=== PATIENT | female | born 2000 | race Caucasian/White ===

== ENCOUNTER 2019-08-22 21:15 | Emergency (ER) | payer OTHER ==
[2019-08-23 00:12] LABS: ABSOLUTE BASOPHILS # (AUTO) 0.1 10^3/uL (0.0-0.2); ABSOLUTE EOSINOPHILS # (AUTO) 0.1 10^3/uL (0.0-0.6); ABSOLUTE LYMPHOCYTES (AUTO) 4.5 10^3/uL (0.5-4.7); ABSOLUTE MONOCYTES (AUTO) 0.6 10^3/uL (0.1-1.4); ABSOLUTE NEUT (AUTO) 9.9 10^3/uL (1.7-8.2); BASOPHILS % (AUTO) 0.7 % (0-2); EOSINOPHILS % (AUTO) 0.8 % (0-6); HEMATOCRIT 42.8 % (36.0-47.0); HEMOGLOBIN 14.8 g/dL (12.0-15.5); LYMPHOCYTES % (AUTO) 29.6 % (13-45); MEAN CORPUSCULAR HEMOGLOBIN 31.1 pg (27.0-33.4); MEAN CORPUSCULAR HGB CONC 34.6 g/dL (32.0-36.0); MEAN CORPUSCULAR VOLUME 90 fl (80-97); MONOCYTES % (AUTO) 4.2 % (3-13); PLATELET COUNT 265 10^3/uL (150-450); RED BLOOD COUNT 4.77 10^6/uL (3.72-5.28); RED CELL DISTRIBUTION WIDTH 12.4 % (11.5-14.0); SEGMENTED NEUTROPHILS % (AUTO) 64.7 % (42-78); TOTAL CELLS COUNTED % (AUTO) 100 %; WHITE BLOOD COUNT 15.3 10^3/uL (4.0-10.5)
[2019-08-23 00:29] LABS: ALBUMIN 4.6 g/dL (3.5-5.0); ALKALINE PHOSPHATASE 56 U/L (38-126); ANION GAP 11 (5-19); ASPARTATE AMINO TRANSFERASE 19 U/L (14-36); BILIRUBIN,DIRECT 0.1 mg/dL (0.0-0.4); BILIRUBIN,TOTAL 0.3 mg/dL (0.2-1.3); BLOOD UREA NITROGEN 9 mg/dL (7-20); CALCIUM 9.3 mg/dL (8.4-10.2); CARBON DIOXIDE 24 mmol/L (22-30); CHLORIDE 103 mmol/L (98-107); GLUCOSE 81 mg/dL (75-110)
[2019-08-23 00:32] LABS: APPEARANCE,URINE CLEAR; BILIRUBIN,URINE NEGATIVE (NEGATIVE); COLOR,URINE STRAW; GLUCOSE, URINE NEGATIVE (NEGATIVE); KETONES,URINE NEGATIVE (NEGATIVE); LEUKOCYTE ESTERASE,URINE NEGATIVE (NEGATIVE); NITRITE,URINE NEGATIVE (NEGATIVE); PROTEIN,URINE NEGATIVE (NEGATIVE); URINE SPECIFIC GRAVITY 1.008; UROBILINOGEN,URINE NEGATIVE mg/dL (<2.0)
--- NOTE | 2019-08-23 01:19 | ER Document Report ---
ED General - General Chief Complaint: Abdominal Pain Stated Complaint: ABDOMINAL PAIN/VAGINAL BLEEDING Time Seen by Provider: 08/22/19 23:33 Notes: 19-year-old female who is a G1, P0 presents the emergency department complaining of brown vaginal discharge starting earlier this evening as well as sharp stabbing abdominal pains that start in her low abdomen and radiate to her mid back. These have been going on since 17:30-2 22:30. Patient had a positive test at [facility] earlier this month, states her last menstrual period was 07/11/2019. Did have intercourse a few days ago. Has not yet had an ultrasound. - Related Data Allergies/Adverse Reactions: No Known Allergies Allergy (Unverified 08/22/19 21:47) Past Medical History - General Information source: Patient - Social History Smoking Status: Former Smoker Chew tobacco use (# tins/day): No Frequency of alcohol use: None Drug Abuse: None Family History: Reviewed & Not Pertinent Patient has suicidal ideation: No Patient has homicidal ideation: No Review of Systems - Review of Systems Constitutional: No symptoms reported Genitourinary: See HPI, Discharge. denies: Burning, Dysuria Female Genitourinary: See HPI, , Vaginal bleeding Musculoskeletal: See HPI, Back pain -: Yes All other systems reviewed and negative Physical Exam - Vital signs Vitals: Temp Pulse Resp BP Pulse Ox 97.7 F 70 18 121/76 99 08/22/19 21:45 08/22/19 21:45 08/22/19 21:45 08/22/19 21:45 08/22/19 21:45 Interpretation: Normal - Notes Notes: GENERAL: Alert, interacts well. No acute distress. HEAD: Normocephalic, atraumatic EYES: Pupils equal, round and reactive to light, extraocular movements intact. ENT: Oral mucosa moist, tongue midline. NECK: Full range of motion, supple, trachea midline. LUNGS: Clear to auscultation bilaterally, no wheezes, rales or rhonchi, no respiratory distress. HEART: Regular rate and rhythm, no murmurs, gallops, rubs. ABDOMEN: Soft, mild suprapubic tenderness palpation, nondistended, bowel sounds present in all 4 quadrants. EXTREMITIES: Moves all 4 extremities spontaneously, no edema, radial and dorsalis pedis pulses 2/4 bilaterally. No cyanosis. NEUROLOGICAL: Alert and oriented x3, normal speech. PSYCH: Normal mood, normal affect. SKIN: Warm, Dry, normal turgor, no rashes or lesions noted. Course - Re-evaluation Re-evalutation: 08/23/19 01:19 CBC shows leukocytosis of 15.3 otherwise unremarkable, CMP unremarkable, lipase normal, urinalysis shows small blood, no leukocyte esterase, test is pending as is RhoGam and quantitative hCG. Transvaginal ultrasound has been ordered to look for ectopic or evidence of intrauterine . 08/23/19 03:24 CBC shows leukocytosis of 15.3, no evidence of infection anywhere, quant is 41,364, urinalysis shows small blood but no signs of infection, patient is a positive, RhoGam is not indicated, transvaginal ultrasound does not show any subchorionic hemorrhage, it does show di-di-twins at 5 weeks and 5 days with heart rates of 158 bpm respectively. Bleeding likely came from having had sex 2 to 3 days ago from some cervical trauma due to the increased friability of the cervix in however patient was given threatened miscarriage precautions and asked to follow-up as scheduled with [facility] in approximately 2 weeks. 08/23/19 03:24 - Vital Signs Vital signs: Temp Pulse Resp BP Pulse Ox 98.3 F 59 L 18 107/62 100 08/23/19 03:10 08/23/19 03:10 08/22/19 21:45 08/23/19 03:10 08/23/19 03:10 - Laboratory Result Diagrams: 08/23/19 00:02 08/23/19 00:02 Laboratory results interpreted by me: 08/23/19 08/23/19 08/23/19 00:02 00:02 00:02 WBC 15.3 H Absolute Neuts (auto) 9.9 H Beta HCG, Quant 14047.00 H Urine Blood SMALL H Urine HCG, Qual 08/23/19 00:02 WBC Absolute Neuts (auto) Beta HCG, Quant Urine Blood SMALL H Urine HCG, Qual POSITIVE H Discharge - Discharge Clinical Impression: First trimester bleeding Twin Qualifiers: Multiple gestation type: dichorionic and diamniotic Trimester: first trimester Qualified Code(s): O30.041 - Twin , dichorionic/diamniotic, first trimester Condition: Stable Disposition: HOME, SELF-CARE Additional Instructions: Congratulations, you are having twins. You are 5 weeks and 5 days along. They are diamniotic dichorionic twins (this usually means fraternal twins). There is no evidence of a miscarriage today. Please follow-up with [facility] as an outpatient. Return for increasing pain, bleeding or any new or concerning symptoms.
[2019-08-23 01:25] LABS: APPEARANCE,URINE CLEAR; BILIRUBIN,URINE NEGATIVE (NEGATIVE); COLOR,URINE STRAW; GLUCOSE, URINE NEGATIVE (NEGATIVE); KETONES,URINE NEGATIVE (NEGATIVE); PROTEIN,URINE NEGATIVE (NEGATIVE); URINE SPECIFIC GRAVITY 1.009; UROBILINOGEN,URINE NEGATIVE mg/dL (<2.0)
--- NOTE | 2019-08-23 02:45 | RADIOLOGY REPORT (SQ) ---
EXAM DESCRIPTION: US TRANSVAGINAL COMPLETED DATE/TME: 08/23/2019 00:11 CLINICAL HISTORY: 19 years, Female, cramping, vaginal bleeding, LMP 07/11/19 COMPARISON: None. TECHNIQUE: LIMITATIONS: None. FINDINGS: There is a live diamniotic dichorionic twin , corresponding to 5 weeks 5 days gestational age, based on a crown-rump length of both embryos of 2 mm. Cardiac activity of both embryos was measured at 158 bpm. There is a normal amount of amniotic fluid in both gestational sacs. No evidence of subchorionic hemorrhage. There is a 1.5 cm right ovarian corpus luteum cyst. No free fluid. IMPRESSION: Live twin as described. copyright 2010 [email or web address]- All Rights Reserved
[2019-08-23 03:10] VITALS: BP 107/62
== END 2019-08-23 04:11 | disposition home or self-care (01) ==
LOC: ER 21:15
DX: O20.9 Hemorrhage in early pregnancy, unspecified (principal); O30.041 Twin pregnancy, dichorionic/diamniotic, first trimester; O26.891 Other specified pregnancy related conditions, first trimester; N89.8 Other specified noninflammatory disorders of vagina; R10.30 Lower abdominal pain, unspecified; O99.111 Other diseases of the blood and blood-forming organs and certain disorders involving the immune mechanism complicating pregnancy, first trimester; D72.829 Elevated white blood cell count, unspecified; O99.89 Other specified diseases and conditions complicating pregnancy, childbirth and the puerperium; M54.9 Dorsalgia, unspecified; Z3A.01 Less than 8 weeks gestation of pregnancy; Z87.891 Personal history of nicotine dependence
CPT/HCPCS: 36415; 76817; 80053; 81001; 81025; 83690; 84702; 85025; 86900; 86901; 93976; 99284

== ENCOUNTER 2019-12-20 09:31 | Emergency (ER) | payer OTHER ==
--- NOTE | 2019-12-20 11:03 | ER Document Report ---
ED Medical Screen (RME) - General Chief Complaint: Breathing Difficulty Stated Complaint: DIFFICULTY BREATHING Time Seen by Provider: 12/20/19 10:54 Notes: HPI: 19-year-old female who is 23 weeks gestation with twin presenting for evaluation of sharp chest pain bilateral that began this morning. No abdominal pain nausea vomiting. No vaginal bleeding discharge. No dysuria no fever. Patient does state that she has been having wheezing at night over the last week. Does not feel short of breath currently. States the chest discomfort seems to be easing off at this time. discussed with Dr. Franklin I have greeted and performed a rapid initial assessment of this patient. A comprehensive ED assessment and evaluation of the patient, analysis of test results and completion of the medical decision making process will be conducted by additional ED providers PHYSICAL EXAMINATION: GENERAL: Well-appearing, well-nourished and in no acute distress. HEAD: Atraumatic, normocephalic. EYES: sclera anicteric, conjunctiva are normal. ENT: Moist mucous membranes. NECK: Normal range of motion LUNGS: Normal work of breathing, lung sounds are clear to auscultation HEART: 2+ radial pulses bilaterally, regular rate and rhythm ABD: limited by positioning for exam in triage. No definitive reproducible pain on palpation EXTREMITIES: no pitting or edema. No cyanosis. NEUROLOGICAL: No focal neurological deficits. Moves all extremities spontaneously and on command. PSYCH: Normal mood, normal affect. SKIN: Warm, Dry, normal turgor, no rashes or lesions noted. TRAVEL OUTSIDE OF THE [place] IN LAST 30 DAYS: No - Related Data Allergies/Adverse Reactions: No Known Allergies Allergy (Verified 12/20/19 10:53) Past Medical History - Social History Chew tobacco use (# tins/day): No Frequency of alcohol use: None Drug Abuse: None Physical Exam - Vital signs Vitals: Temp Pulse Resp BP Pulse Ox 98.1 F 88 18 105/68 98 12/20/19 10:12 12/20/19 10:12 12/20/19 10:12 12/20/19 10:12 12/20/19 10:12 Course - Vital Signs Vital signs: Temp Pulse Resp BP Pulse Ox 98.1 F 88 18 105/68 98 12/20/19 10:12 12/20/19 10:12 12/20/19 10:12 12/20/19 10:12 12/20/19 10:12
[2019-12-20 11:41] LABS: ABSOLUTE EOSINOPHILS # (AUTO) 0.2 10^3/uL (0.0-0.6); ABSOLUTE LYMPHOCYTES (AUTO) 2.3 10^3/uL (0.5-4.7); ABSOLUTE MONOCYTES (AUTO) 0.5 10^3/uL (0.1-1.4); ABSOLUTE NEUT (AUTO) 10.4 10^3/uL (1.7-8.2); BASOPHILS % (AUTO) 0.3 % (0-2); EOSINOPHILS % (AUTO) 1.5 % (0-6); HEMATOCRIT 35.4 % (36.0-47.0); HEMOGLOBIN 12.6 g/dL (12.0-15.5); LYMPHOCYTES % (AUTO) 17.4 % (13-45); MEAN CORPUSCULAR HGB CONC 35.5 g/dL (32.0-36.0); MEAN CORPUSCULAR VOLUME 93 fl (80-97); MONOCYTES % (AUTO) 3.5 % (3-13); PLATELET COUNT 214 10^3/uL (150-450); RED CELL DISTRIBUTION WIDTH 13.4 % (11.5-14.0); SEGMENTED NEUTROPHILS % (AUTO) 77.3 % (42-78); TOTAL CELLS COUNTED % (AUTO) 100 %; WHITE BLOOD COUNT 13.5 10^3/uL (4.0-10.5)
[2019-12-20 11:49] LABS: APPEARANCE,URINE SLIGHTLY-CLOUDY; BILIRUBIN,URINE NEGATIVE (NEGATIVE); COLOR,URINE YELLOW; GLUCOSE, URINE NEGATIVE (NEGATIVE); KETONES,URINE NEGATIVE (NEGATIVE); LEUKOCYTE ESTERASE,URINE TRACE (NEGATIVE); NITRITE,URINE NEGATIVE (NEGATIVE); PROTEIN,URINE NEGATIVE (NEGATIVE); URINE SPECIFIC GRAVITY 1.014; UROBILINOGEN,URINE NEGATIVE mg/dL (<2.0)
[2019-12-20 11:58] LABS: ALBUMIN 3.7 g/dL (3.5-5.0); ALKALINE PHOSPHATASE 68 U/L (38-126); ANION GAP 9 (5-19); ASPARTATE AMINO TRANSFERASE 15 U/L (14-36); BILIRUBIN,DIRECT 0.2 mg/dL (0.0-0.4); BILIRUBIN,TOTAL 0.4 mg/dL (0.2-1.3); BLOOD UREA NITROGEN 7 mg/dL (7-20); CALCIUM 9.5 mg/dL (8.4-10.2); CARBON DIOXIDE 24 mmol/L (22-30); CHLORIDE 105 mmol/L (98-107); GLUCOSE 94 mg/dL (75-110); POTASSIUM 4.1 mmol/L (3.6-5.0); TOTAL PROTEIN 6.7 g/dL (6.3-8.2)
--- NOTE | 2019-12-20 12:24 | RADIOLOGY REPORT (SQ) ---
EXAM DESCRIPTION: CHEST 2 VIEWS COMPLETED DATE/TIME: 12/20/2019 12:14 pm REASON FOR STUDY: chest pain COMPARISON: None. EXAM PARAMETERS: NUMBER OF VIEWS: Two views. TECHNIQUE: PA and lateral views of the chest were obtained.. RADIATION DOSE: NA LIMITATIONS: none FINDINGS: LUNGS AND PLEURA: No consolidation, pleural effusion or pneumothorax. MEDIASTINUM AND HILAR STRUCTURES: No mediastinal or hilar contour abnormality. HEART AND VASCULAR STRUCTURES: The cardiac silhouette and pulmonary vasculature are within normal wright its. BONES: No acute findings. HARDWARE: Cholecystectomy clips. OTHER: No other finding. IMPRESSION: No acute cardiopulmonary process. TECHNICAL DOCUMENTATION: JOB ID: [id number] [employer]- All Rights Reserved Reading location - IP/workstation name: [email or web address]
[2019-12-20] MEDS ORDERED: ALBUTEROL SULFATE HFA (90 MCG/PUFF) 8 GM MDI (1 MDI/ER DISP) IH ONE (13:40)
[2019-12-20] MEDS ORDERED: NITROFURANTOIN MONOHYD/M-CRYST 100 MG CAPSULE PO ONE (13:40)
--- NOTE | 2019-12-20 13:45 | ER Document Report ---
ED General - General Chief Complaint: Breathing Difficulty Stated Complaint: DIFFICULTY BREATHING Time Seen by Provider: 12/20/19 10:54 Notes: 19-year-old female who is a G1, P0 twin di-di-twins who is at 23 weeks gestation presents emergency department complaining of sharp stabbing pain in her lower rib cage and upper abdomen that onset at 750 this a.m. It is worse with deep breathing, comes and goes with deep breaths and exhalation. She admits a cough and intermittent wheezing in the mornings in the evenings for the past week. Has not been using an inhaler. Was not concerned by this wheezing because she has had wheezing in the past when she smoked. Patient has since quit smoking. Patient states that her pain has now completely resolved without any intervention. States that was not associate with nausea or vomiting, admits heartburn at night but denies any worsening of her heartburn with these symptoms. Does not take an antacid. Also complains of some dysuria today. Denies any vaginal bleeding or vaginal discharge, states that the twins are moving as per usual. TRAVEL OUTSIDE OF THE [place] IN LAST 30 DAYS: No - Related Data Allergies/Adverse Reactions: No Known Allergies Allergy (Verified 12/20/19 10:53) Past Medical History - General Information source: Patient - Social History Smoking Status: Former Smoker Chew tobacco use (# tins/day): No Frequency of alcohol use: None Drug Abuse: None Family History: Reviewed & Not Pertinent Patient has suicidal ideation: No Patient has homicidal ideation: No Review of Systems - Review of Systems Constitutional: No symptoms reported Cardiovascular: See HPI Respiratory: See HPI Gastrointestinal: No symptoms reported Genitourinary: See HPI, Dysuria Female Genitourinary: -: Yes All other systems reviewed and negative Physical Exam - Vital signs Vitals: Temp Pulse Resp BP Pulse Ox 98.1 F 88 18 105/68 98 12/20/19 10:12 12/20/19 10:12 12/20/19 10:12 12/20/19 10:12 12/20/19 10:12 Interpretation: Normal - Notes Notes: GENERAL: Alert, interacts well. No acute distress. HEAD: Normocephalic, atraumatic EYES: Pupils equal, round and reactive to light, extraocular movements intact. ENT: Oral mucosa moist, tongue midline. NECK: Full range of motion, supple, trachea midline. LUNGS: Clear to auscultation bilaterally, no wheezes, rales or rhonchi, no respiratory distress. HEART: Regular rate and rhythm, no murmurs, gallops, rubs. ABDOMEN: Soft, nontender, small for gestational dates and twin , gravid, bowel sounds present in all 4 quadrants. EXTREMITIES: Moves all 4 extremities spontaneously, no edema, radial and dorsalis pedis pulses 2/4 bilaterally. No cyanosis. NEUROLOGICAL: Alert and oriented x3, normal speech. PSYCH: Normal mood, normal affect. SKIN: Warm, Dry, normal turgor, no rashes or lesions noted. Course - Re-evaluation Re-evalutation: 12/20/19 13:43 CBC shows leukocytosis at 13.5, this is fairly typical for second trimester , CMP unremarkable, lipase normal, urinalysis shows trace leukocyte esterase, 2+ bacteria, given the fact that the patient is and has had some dysuria patient will be treated with Macrobid. Chest x-ray is negative, all her symptoms have resolved. Patient's wheezing will be treated with an inhaler to take home. Patient will be discharged home. There is no tachypnea, tachycardia or hypoxia. Patient does not need a CT angiogram to look for pulmonary embolism. Very low pretest probability. - Vital Signs Vital signs: Temp Pulse Resp BP Pulse Ox 98.1 F 88 18 105/68 98 12/20/19 10:12 12/20/19 10:12 12/20/19 10:12 12/20/19 10:12 12/20/19 10:12 - Laboratory Result Diagrams: 12/20/19 11:17 12/20/19 11:17 Laboratory results interpreted by me: 12/20/19 12/20/19 12/20/19 11:17 11:17 11:20 WBC 13.5 H Hct 35.4 L Absolute Neuts (auto) 10.4 H Lipase 22.4 L Ur Leukocyte Esterase TRACE H Discharge - Discharge Clinical Impression: Pleuritic chest pain Twin Qualifiers: Multiple gestation type: dichorionic and diamniotic Trimester: second trimester Qualified Code(s): O30.042 - Twin , dichorionic/diamniotic, second trimester Condition: Stable Disposition: HOME, SELF-CARE Additional Instructions: Today we found a very mild urinary tract infection. I am treating you with Macrobid. We did not find any evidence of a pneumonia on your chest x-ray. Your blood work was normal except for an elevated white blood cell count of 13.5. There is no evidence of pancreatitis. As you have described wheezing in the mornings in the evening I have prescribed you an albuterol inhaler. Please use 2 puffs as needed no more often than every 4 hours to decrease your wheezing. Please follow-up with your [facility] as an outpatient. If your pain returns and worsens, makes you feel like you cannot breathe or makes you feel like you are going to pass out or you develop any new or concerning symptoms please return the emergency department immediately. Prescriptions: Nitrofurantoin Monohyd/M-Cryst [Macrobid 100 mg Capsule] 100 mg PO BID #14 cap
[2019-12-20 14:09] VITALS: BP 96/58
== END 2019-12-20 14:12 | disposition home or self-care (01) ==
LOC: ER 09:31
DX: O30.042 Twin pregnancy, dichorionic/diamniotic, second trimester (principal); O26.892 Other specified pregnancy related conditions, second trimester; R07.81 Pleurodynia; R10.10 Upper abdominal pain, unspecified; R05 Cough; R06.2 Wheezing; Z3A.23 23 weeks gestation of pregnancy; Z87.891 Personal history of nicotine dependence
CPT/HCPCS: 36415; 83690; 85025; 80053; 81001; 71046; J3490; J8499; 99285

== ENCOUNTER 2020-03-12 10:40 | Outpatient (CLI) | payer OTHER ==
[2020-03-12 11:42] LABS: ABSOLUTE BASOPHILS # (AUTO) 0.1 10^3/uL (0.0-0.2); ABSOLUTE EOSINOPHILS # (AUTO) 0.4 10^3/uL (0.0-0.6); ABSOLUTE MONOCYTES (AUTO) 0.6 10^3/uL (0.1-1.4); ABSOLUTE NEUT (AUTO) 8.9 10^3/uL (1.7-8.2); BASOPHILS % (AUTO) 0.5 % (0-2); EOSINOPHILS % (AUTO) 2.9 % (0-6); HEMATOCRIT 31.4 % (36.0-47.0); HEMOGLOBIN 11.3 g/dL (12.0-15.5); LYMPHOCYTES % (AUTO) 16.7 % (13-45); MEAN CORPUSCULAR HEMOGLOBIN 31.4 pg (27.0-33.4); MEAN CORPUSCULAR VOLUME 87 fl (80-97); MONOCYTES % (AUTO) 5.2 % (3-13); PLATELET COUNT 189 10^3/uL (150-450); RED BLOOD COUNT 3.59 10^6/uL (3.72-5.28); RED CELL DISTRIBUTION WIDTH 12.7 % (11.5-14.0); SEGMENTED NEUTROPHILS % (AUTO) 74.7 % (42-78); TOTAL CELLS COUNTED % (AUTO) 100 %; WHITE BLOOD COUNT 11.9 10^3/uL (4.0-10.5)
[2020-03-12 11:47] LABS: APPEARANCE,URINE SLIGHTLY-CLOUDY; BILIRUBIN,URINE NEGATIVE (NEGATIVE); COLOR,URINE YELLOW; GLUCOSE, URINE NEGATIVE (NEGATIVE); KETONES,URINE NEGATIVE (NEGATIVE); LEUKOCYTE ESTERASE,URINE TRACE (NEGATIVE); NITRITE,URINE NEGATIVE (NEGATIVE); PROTEIN,URINE NEGATIVE (NEGATIVE); URINE SPECIFIC GRAVITY 1.009; UROBILINOGEN,URINE NEGATIVE mg/dL (<2.0)
[2020-03-12 11:59] LABS: ALBUMIN 3.1 g/dL (3.5-5.0); ALKALINE PHOSPHATASE 148 U/L (38-126); ANION GAP 6 (5-19); ASPARTATE AMINO TRANSFERASE 18 U/L (14-36); BILIRUBIN,TOTAL 0.5 mg/dL (0.2-1.3); BLOOD UREA NITROGEN 5 mg/dL (7-20); CALCIUM 9.4 mg/dL (8.4-10.2); CARBON DIOXIDE 18 mmol/L (22-30); CHLORIDE 109 mmol/L (98-107); GLUCOSE 97 mg/dL (75-110); POTASSIUM 3.8 mmol/L (3.6-5.0); URIC ACID 4.7 mg/dL (2.5-6.2)
[2020-03-12 12:03] LABS: URINE AMPHETAMINES SCREEN NEGATIVE; URINE BARBITURATES SCREEN NEGATIVE; URINE BENZODIAZEPINES SCREEN NEGATIVE; URINE COCAINE SCREEN NEGATIVE; URINE MARIJUANA (THC) SCREEN NEGATIVE; URINE METHADONE SCREEN NEGATIVE; URINE PHENCYCLIDINE SCREEN NEGATIVE
[2020-03-12 12:06] LABS: UR PRO/CREAT RATIO RESULT 0.3 mg/mg (0.0-0.2); URINE CREATININE 71.3 mg/dL (16-327); URINE PROTEIN 21.9 mg/dL (<12)
--- NOTE | 2020-03-12 12:44 | Non Stress Test Report ---
Non Stress Test Datetime Report Generated by CPN: 03/12/2020 12:44 DEMOGRAPHIC EGA NST: 35.0 INDICATION Indication for Study (NST) Other: provider ordered VITAL SIGNS Temperature - NST: 97.4 Pulse - NST: 66 RESP - NST: 16 NBPSYS NST: 108 NBPDIA NST: 69 MONITORING Monitor Explained: Monitor Explained; Test Explained; Patient Verbalized Understanding Time on Monitor: 03/12/2020 11:10 Time off Monitor: 03/12/2020 12:19 NST Duration: 69 NST INTERVENTIONS NST Interventions: PO Hydration Physician Notified NST: N.Walden CNM BABY A: [id number] BABY A Movement : Present Contraction Frequency : irregular FHR Baseline : 135 Accelerations : 15X15 Decelerations : None Variability : Moderate 6-25bpm NST Review: Meets Criteria for Reactive NST NST Review and Verified By : VicenteRN NST Results: Reactive BABY B Movement: Present FHR Baseline: 135 Accelerations: 15X15 Decelerations: None Variability: Moderate 6-25bpm NST Review: Meets Criteria for Reactive NST NST Reviewed And Verified By: VicenteRN NST Results: Reactive NST REPORT Report Trigger: Send Report
== END 2020-03-12 12:34 | disposition home or self-care (01) ==
LOC: LC 10:40
PROVIDERS: ATTEND Obstetrics & Gynecology
DX: O30.003 Twin pregnancy, unspecified number of placenta and unspecified number of amniotic sacs, third trimester (principal); O26.893 Other specified pregnancy related conditions, third trimester; R51 Headache; Z3A.35 35 weeks gestation of pregnancy
CPT/HCPCS: 36415; 59025; 80053; 80307; 81001; 82570; 83615; 84156; 84550; 85025

== ENCOUNTER 2020-03-21 07:46 | Outpatient (CLI) | payer OTHER ==
[~2020-03-21 07:46] MED LIST: FERRIC CARBOXYMALTOSE 750 MG in NORMAL SALINE 250 ML IV PRN
[2020-03-21 07:58] VITALS: BP 134/79
[2020-03-21] MEDS ORDERED: NORMAL SALINE 250 ML IV PRN (08:00)
== END 2020-03-21 09:30 | disposition home or self-care (01) ==
LOC: II 07:46 → 5TH 07:49 → II 09:30
PROVIDERS: ATTEND Midwife
DX: O99.019 Anemia complicating pregnancy, unspecified trimester (principal)
CPT/HCPCS: 96365; J7050; J1439

== ENCOUNTER 2020-03-28 05:00 | Inpatient (IN) | payer OTHER ==
[2020-03-25 12:42] LABS: APPEARANCE,URINE SLIGHTLY-CLOUDY; BILIRUBIN,URINE NEGATIVE (NEGATIVE); COLOR,URINE YELLOW; GLUCOSE, URINE NEGATIVE (NEGATIVE); KETONES,URINE NEGATIVE (NEGATIVE); LEUKOCYTE ESTERASE,URINE SMALL (NEGATIVE); NITRITE,URINE NEGATIVE (NEGATIVE); PROTEIN,URINE NEGATIVE (NEGATIVE); URINE SPECIFIC GRAVITY 1.009; UROBILINOGEN,URINE NEGATIVE mg/dL (<2.0)
[2020-03-25 13:06] LABS: URINE AMPHETAMINES SCREEN NEGATIVE; URINE BARBITURATES SCREEN NEGATIVE; URINE BENZODIAZEPINES SCREEN NEGATIVE; URINE COCAINE SCREEN NEGATIVE; URINE MARIJUANA (THC) SCREEN NEGATIVE; URINE METHADONE SCREEN NEGATIVE; URINE PHENCYCLIDINE SCREEN NEGATIVE
[2020-03-26 13:09] LABS: ABSOLUTE BASOPHILS # (AUTO) 0.1 10^3/uL (0.0-0.2); ABSOLUTE EOSINOPHILS # (AUTO) 0.5 10^3/uL (0.0-0.6); ABSOLUTE MONOCYTES (AUTO) 0.5 10^3/uL (0.1-1.4); ABSOLUTE NEUT (AUTO) 8.5 10^3/uL (1.7-8.2); BASOPHILS % (AUTO) 0.4 % (0-2); EOSINOPHILS % (AUTO) 4.1 % (0-6); HEMATOCRIT 30.7 % (36.0-47.0); HEMOGLOBIN 10.7 g/dL (12.0-15.5); LYMPHOCYTES % (AUTO) 17.1 % (13-45); MEAN CORPUSCULAR HEMOGLOBIN 30.7 pg (27.0-33.4); MEAN CORPUSCULAR HGB CONC 34.8 g/dL (32.0-36.0); MEAN CORPUSCULAR VOLUME 88 fl (80-97); MONOCYTES % (AUTO) 4.4 % (3-13); PLATELET COUNT 166 10^3/uL (150-450); RED BLOOD COUNT 3.48 10^6/uL (3.72-5.28); RED CELL DISTRIBUTION WIDTH 13.1 % (11.5-14.0); TOTAL CELLS COUNTED % (AUTO) 100 %; WHITE BLOOD COUNT 11.5 10^3/uL (4.0-10.5)
[~2020-03-28 05:00] MED LIST changes: +CEFAZOLIN SODIUM 2 GM in DEXTROSE 5%-WATER 100 ML IV PRN; -FERRIC CARBOXYMALTOSE 750 MG in NORMAL SALINE 250 ML IV PRN; +RINGERS SOLUTION,LACTATED 1,000 ML IV PRN
[2020-03-28] MEDS ORDERED: PHENYLEPHRINE HCL INJ/PF 10 MG/1 ML SDV ONE (07:17)
[2020-03-28] MEDS ORDERED: ACETAMINOPHEN 1,000 MG/100 ML RTUPB IV ONE (07:17)
[2020-03-28] MEDS ORDERED: FENTANYL CITRATE INJ/PF 100 MCG/2 ML AMPUL ONE (07:17)
[2020-03-28] MEDS ORDERED: MIDAZOLAM 2 MG/2 ML INJ ONE (07:17)
[2020-03-28] MEDS ORDERED: OXYTOCIN 10 UNIT/ML VIAL ONE (07:17)
[2020-03-28] MEDS ORDERED: KETOROLAC TROMETHAMINE INJ/PF 30 MG/1 ML SDV ONE (07:17)
[2020-03-28] MEDS ORDERED: ONDANSETRON HCL INJ/PF 4 MG/2 ML SDV ONE (07:18)
[2020-03-28] MEDS ORDERED: METHYLERGONOVINE MALEATE INJ/PF 0.2 MG/1 ML AMPULE ONE ×2 (07:18→08:19)
[2020-03-28] MEDS ORDERED: EPHEDRINE SULFATE INJ 50 MG/1 ML AMPULE ONE (07:18)
[2020-03-28] MEDS ORDERED: NORMAL SALINE 250 ML IV PRN (08:00)
[2020-03-28] MEDS ORDERED: FERRIC CARBOXYMALTOSE 750 MG in NORMAL SALINE 250 ML IV PRN (08:00)
[2020-03-28] MEDS ORDERED: FENTANYL CITRATE INJ/PF 100 MCG/2 ML AMPUL IV PRN ×3 (08:18)
[2020-03-28] MEDS ORDERED: OXYCODONE-ACETAMINOPHEN 5-325 MG TABLET PO PRN ×2 (08:18)
[2020-03-28] MEDS ORDERED: MEPERIDINE HCL/PF INJ 25 MG/1 ML DISP.SYRIN IV PRN (08:18)
[2020-03-28] MEDS ORDERED: PROMETHAZINE HCL INJ 25 MG/1 ML VIAL IV PRN ×4 (08:18→11:30)
[2020-03-28] MEDS ORDERED: ONDANSETRON HCL INJ/PF 4 MG/2 ML SDV IV PRN (08:18)
[2020-03-28] MEDS ORDERED: DIPHENHYDRAMINE HCL 50 MG/ML VIAL IV PRN (08:18)
[2020-03-28] MEDS ORDERED: MISOPROSTOL 0.2 MG TABLET ONE ×2 (08:18→08:39)
[2020-03-28] MEDS ORDERED: SIMETHICONE 80 MG TAB.CHEW PO PRN ×2 (08:28→11:30)
[2020-03-28] MEDS ORDERED: ACETAMINOPHEN 325 MG TABLET PO PRN (08:28)
[2020-03-28] MEDS ORDERED: MEASLES,MUMPS&RUBELLA VACC/PF 0.5 ML VIAL SUBCUT PRN ×2 (08:28→11:30)
[2020-03-28] MEDS ORDERED: OXYTOCIN/0.9 % SODIUM CHLORIDE 30 UNIT/500 ML RTUINJ IV PRN (08:28)
[2020-03-28] MEDS ORDERED: ACETAMINOPHEN 1,000 MG/100 ML RTUPB IV PRN (08:28)
[2020-03-28] MEDS ORDERED: MORPHINE SULFATE 10 MG/ML INJ IM PRN (08:28)
[2020-03-28] MEDS ORDERED: DIPH/PERTUSS(ACELL)/TETANUS VAC/PF 0.5 ML SYR (>=10YO) IM PRN ×2 (08:28→11:30)
--- NOTE | 2020-03-28 08:38 | PDOC DELIVERY SUMMARY ---
Delivery Summary - Maternal Hx : I NATALIE: 04[birth year]20 Gestational Age: 37.2 Risk Factors: Other - twins breech Ruptured Membranes: AROM Fluids: Clear - Delivery Labor: Not In Labor Presentation: Breech Uterine Contraction Monitoring: External Support Person Present: Yes : Scheduled Placenta: Within Normal Limits - Medications Type of Anesthesia:: Spinal
[2020-03-28] MEDS ORDERED: PROMETHAZINE HCL INJ 25 MG/1 ML VIAL ONE (08:39)
[2020-03-28] MEDS ORDERED: HYDROMORPHONE HCL INJ/PF 2 MG/ML AMPULE ONE (08:39)
--- NOTE | 2020-03-28 08:43 | Operative Report ---
Operative Report DATE OF SURGERY: 03/28/20 PREOPERATIVE DIAGNOSIS: IUP twins breech breech POSTOPERATIVE DIAGNOSIS: Same OPERATION: Eh low transverse delivery of viable 's breech breech SURGEON: FATMATA GUTIERREZ ANESTHESIA: Spinal TISSUE REMOVED OR ALTERED: Placenta ESTIMATED BLOOD LOSS: 1500 cc PROCEDURE: The patient was taken to the operating room where spinal anesthesia was obtained and found to be adequate. She was then prepped and draped in the normal sterile fashion and placed in the dorsal supine position with a leftward tilt. A Pfannenstiel skin incision was then made and carried through to the underlying layers of the fascia with the scalpel. The fascia was incised in the midline and the incision extended laterally with the Kahn scissors. The superior aspect of the fascial incision was then grasped with Basin clamps elevated and the underlying rectus muscles dissected off bluntly. Attention was then turned to the inferior aspect of the fascial incision which in a similar fashion was grasped, tented up with Rowdy clamps, and the rectus muscles dissected off bluntly. The rectus muscles were then in the midline and the peritoneum at the amount identified and entered bluntly. The peritoneal incision was then extended superiorly and inferiorly with good visualization of the bladder. [The bladder blade was inserted and the vesicouterine peritoneum identified grasped with [place]ian pickups and entered sharply with the Metzenbaum scissors. His incision was then extended laterally with the Metzenbaum scissors and a bladder flap created digitally. The bladder blade was then reinserted and the lower uterine segment incised in a transverse fashion with the scalpel. The uterine incision was then extended bluntly. The bladder blade was removed and the infant a delivered via breech extraction. The nose and mouth were suctioned and the cord doubly clamped and cut. And the infant was handed off to waiting pediatricians. be then delivered via breech extraction cord was clamped nose was suctioned and passed from the table. Infant a double nuchal cord The placenta was then delivered manully and the uterus exteriorized and cleared of all clots and debris. The uterine incision was then repaired with 1-0 Vicryl in a running locked fashion. A second layer of the same suture was used to obtain hemostasis via imbrication of the initial layer. The uterus was returned to the patient's abdomen. The gutters were cleared of all clots and debris. All operative sites were noted to be hemostatic. The fascia was reapproximated with 0 Vicryl in a running fashion from each lateral edge to the midline. The patient tolerated the procedure well. Sponge lap needle and instrument counts are correct -2. 2 g of Ancef were given prior to skin incision. The patient was taken to the recovery area awake and in stable condition.
[2020-03-28] MEDS ORDERED: TRANEXAMIC ACID INJ/PF 1,000 MG/10 ML SDV ONE (08:48)
[2020-03-28] MEDS ORDERED: MORPHINE SULFATE 10 MG/ML INJ ONE (09:00)
[2020-03-28] MEDS: MORPHINE SULFATE 10 MG/ML INJ IV PRN ×2 (09:03→10:26)
[2020-03-28] MEDS ORDERED: OXYTOCIN/0.9 % SODIUM CHLORIDE 30 UNIT/500 ML RTUINJ ONE (09:24)
[2020-03-28 10:46] LABS: ABSOLUTE EOSINOPHILS # (AUTO) 0.2 10^3/uL (0.0-0.6); ABSOLUTE LYMPHOCYTES (AUTO) 1.4 10^3/uL (0.5-4.7); ABSOLUTE MONOCYTES (AUTO) 0.6 10^3/uL (0.1-1.4); BASOPHILS % (AUTO) 0.2 % (0-2); EOSINOPHILS % (AUTO) 1.4 % (0-6); HEMATOCRIT 27.6 % (36.0-47.0); HEMOGLOBIN 9.5 g/dL (12.0-15.5); LYMPHOCYTES % (AUTO) 8.4 % (13-45); MEAN CORPUSCULAR HEMOGLOBIN 30.9 pg (27.0-33.4); MEAN CORPUSCULAR HGB CONC 34.6 g/dL (32.0-36.0); MEAN CORPUSCULAR VOLUME 89 fl (80-97); MONOCYTES % (AUTO) 3.5 % (3-13); PLATELET COUNT 147 10^3/uL (150-450); RED BLOOD COUNT 3.09 10^6/uL (3.72-5.28); RED CELL DISTRIBUTION WIDTH 13.4 % (11.5-14.0); SEGMENTED NEUTROPHILS % (AUTO) 86.5 % (42-78); TOTAL CELLS COUNTED % (AUTO) 100 %; WHITE BLOOD COUNT 16.2 10^3/uL (4.0-10.5)
[2020-03-28] MEDS: OXYCODONE-ACETAMINOPHEN 5-325 MG TABLET PO PRN ×3 (11:19→20:42)
[2020-03-28] MEDS: TRANEXAMIC ACID INJ/PF 1,000 MG/10 ML SDV IV SCH (11:49)
[2020-03-28] MEDS: DOCUSATE SODIUM 100 MG CAPSULE PO SCH ×2 (11:49→17:21)
[2020-03-28] MEDS: PRENATAL VITAMIN W DHA CAPSULE PO SCH (11:50)
[2020-03-28] MEDS: KETOROLAC TROMETHAMINE INJ/PF 30 MG/1 ML SDV IV SCH ×2 (15:01→22:34)
[2020-03-29] MEDS: OXYCODONE-ACETAMINOPHEN 5-325 MG TABLET PO PRN ×4 (05:11→21:45)
[2020-03-29] MEDS: KETOROLAC TROMETHAMINE INJ/PF 30 MG/1 ML SDV IV SCH (05:12)
[2020-03-29 06:53] LABS: HEMATOCRIT 23.4 % (36.0-47.0); HEMOGLOBIN 8.1 g/dL (12.0-15.5); MEAN CORPUSCULAR HEMOGLOBIN 30.6 pg (27.0-33.4); MEAN CORPUSCULAR HGB CONC 34.4 g/dL (32.0-36.0); MEAN CORPUSCULAR VOLUME 89 fl (80-97); PLATELET COUNT 129 10^3/uL (150-450); RED BLOOD COUNT 2.63 10^6/uL (3.72-5.28); RED CELL DISTRIBUTION WIDTH 13.9 % (11.5-14.0); WHITE BLOOD COUNT 15.4 10^3/uL (4.0-10.5)
[2020-03-29] MEDS ORDERED: TRANEXAMIC ACID INJ/PF 1,000 MG/10 ML SDV ONE (09:10)
[2020-03-29] MEDS: PRENATAL VITAMIN W DHA CAPSULE PO SCH (09:25)
[2020-03-29] MEDS: DOCUSATE SODIUM 100 MG CAPSULE PO SCH ×2 (09:25→17:28)
[2020-03-29] MEDS: TRANEXAMIC ACID INJ/PF 1,000 MG/10 ML SDV IV SCH (09:26)
[2020-03-29] MEDS: IBUPROFEN 800 MG TABLET PO SCH ×3 (11:24→23:11)
--- NOTE | 2020-03-29 15:57 | PDOC PROGRESS REPORT ---
Subjective-OB Progress Note for:: 03/29/20 Subjective: PT doing well, no concerns. She denies pain, reports having been up to the bathroom this am. She is . Physical Exam (OB) Vital Signs: Temp Pulse Resp BP Pulse Ox 97.7 F 89 16 123/81 97 03/29/20 15:17 03/29/20 15:17 03/29/20 15:17 03/29/20 15:17 03/29/20 15:17 Intake & Output 03/28/20 03/29/20 03/30/20 06:59 06:59 06:59 Intake Total 240 Output Total 1206 1200 Balance -966 -1200 Weight 101.605 kg - PIH/Pre-Eclampsia DTR's: 1 + Clonus: Negative Headache: Absent Epigastric Pain: No Visual Changes: No - Dressing Removed: No Incision: Dressing Closure Type: pressure - Lochia Lochia Amount: Scant < 10 ml Lochia Color: Rubra/Red - Abdomen Description: Soft Hernia Present: No Fundal Description: Firm, Midline Fundal Height: u/u - u/2 Objective-Diagnostic Laboratory: 03/29/20 06:19 03/29/20 06:19 WBC 15.4 H RBC 2.63 L Hgb 8.1 L Hct 23.4 L MCV 89 MCH 30.6 MCHC 34.4 RDW 13.9 Plt Count 129 L Assessment and Plan(PN) - Assessment and Plan (1) Multiple gestation with malpresentation Qualifiers: Trimester: unspecified trimester Qualified Code(s): O30.90 - Multiple gesta tion, unspecified, unspecified trimester; O32.9XX0 - Maternal care for malpresentation of fetus, unspecified, not applicable or unspecified Is this a current diagnosis for this admission?: Yes (2) S/P primary low transverse Is this a current diagnosis for this admission?: Yes (3) Twin delivered Is this a current diagnosis for this admission?: Yes - Time Spent with Patient Time with patient: Less than 15 minutes Medications reviewed and adjusted accordingly: Yes - Disposition Anticipated Discharge: Home Within: within 24 hours
[2020-03-30] MEDS: IBUPROFEN 800 MG TABLET PO SCH ×2 (05:33→12:06)
[2020-03-30] MEDS: TRANEXAMIC ACID INJ/PF 1,000 MG/10 ML SDV IV SCH (09:35)
--- NOTE | 2020-03-30 09:47 | PDOC DISCHARGE SUMMARY ---
Impression - Admit/DC Date/PCP Admission Date/Primary Care Provider: 03/28/20 05:00 FATMATA GUTIERREZ MD Discharge Date: 03/30/20 - Discharge Diagnosis (1) Multiple gestation with malpresentation Is this a current diagnosis for this admission?: Yes (2) S/P primary low transverse Is this a current diagnosis for this admission?: Yes (3) Twin delivered Is this a current diagnosis for this admission?: Yes - Additional Information Resuscitation Status: Full Code Discharge Diet: Regular Discharge Activity: Balance Activity w/Rest, No Lifting Over 10 Pounds, No Lifting/Push/Pulling, Pelvic Rest, No tub bath Referrals: FATMATA GUTIERREZ MD [Primary Care Provider] - Prescriptions: Oxycodone HCl/Acetaminophen [Percocet 5-325 mg Tablet] 1 tab PO Q4HP PRN #30 tablet PRN Reason: For Pain Scale 3-5 Ibuprofen [Motrin 800 mg Tablet] 800 mg PO Q8HP PRN #60 tablet PRN Reason: Ferrous Sulfate 325 mg PO BID #60 tablet. Home Medications: Pnv No.95/Ferrous Fum/Folic AC [ Caplet] 1 tab PO DAILY 12/20/19 Docusate Sodium [Colace 100 mg Capsule] 100 mg PO DAILY 03/21/20 Promethazine HCl [Phenergan 25 mg Tablet] 25 - 50 mg PO ASDIR PRN 03/21/20 Ferrous Sulfate 325 mg PO BID #60 tablet. 03/30/20 Ibuprofen [Motrin 800 mg Tablet] 800 mg PO Q8HP PRN #60 tablet 03/30/20 Oxycodone HCl/Acetaminophen [Percocet 5-325 mg Tablet] 1 tab PO Q4HP PRN #30 tablet 03/30/20 HPI Reason(s) for Admission: Ceasarean Section-Primary, Twins Procedures: NST Intrapartum Procedure(s): : Low Cervical, Transverse Results Laboratory Results: WBC 15.4 10^3/uL (4.0-10.5) H 03/29/20 06:19 RBC 2.63 10^6/uL (3.72-5.28) L 03/29/20 06:19 Hgb 8.1 g/dL (12.0-15.5) L 03/29/20 06:19 Hct 23.4 % (36.0-47.0) L 03/29/20 06:19 MCV 89 fl (80-97) 03/29/20 06:19 MCH 30.6 pg (27.0-33.4) 03/29/20 06:19 MCHC 34.4 g/dL (32.0-36.0) 03/29/20 06:19 RDW 13.9 % (11.5-14.0) 03/29/20 06:19 Plt Count 129 10^3/uL (150-450) L 03/29/20 06:19 Lymph % (Auto) 8.4 % (13-45) L 03/28/20 10:26 Henry % (Auto) 3.5 % (3-13) 03/28/20 10:26 Eos % (Auto) 1.4 % (0-6) 03/28/20 10:26 Baso % (Auto) 0.2 % (0-2) 03/28/20 10:26 Absolute Neuts (auto) 14.0 10^3/uL (1.7-8.2) H 03/28/20 10:26 Absolute Lymphs (auto) 1.4 10^3/uL (0.5-4.7) 03/28/20 10:26 Absolute Monos (auto) 0.6 10^3/uL (0.1-1.4) 03/28/20 10:26 Absolute Eos (auto) 0.2 10^3/uL (0.0-0.6) 03/28/20 10:26 Absolute Basos (auto) 0.0 10^3/uL (0.0-0.2) 03/28/20 10:26 Seg Neutrophils % 86.5 % (42-78) H 03/28/20 10:26 Urine Color YELLOW 03/25/20 12:05 Urine Appearance SLIGHTLY-CLOUDY 03/25/20 12:05 Urine pH 7.0 (5.0-9.0) 03/25/20 12:05 Ur Specific [place] 1.009 03/25/20 12:05 Urine Protein NEGATIVE mg/dL (NEGATIVE) 03/25/20 12:05 Urine Glucose (UA) NEGATIVE mg/dL (NEGATIVE) 03/25/20 12:05 Urine Ketones NEGATIVE mg/dL (NEGATIVE) 03/25/20 12:05 Urine Blood NEGATIVE (NEGATIVE) 03/25/20 12:05 Urine Nitrite NEGATIVE (NEGATIVE) 03/25/20 12:05 Urine Bilirubin NEGATIVE (NEGATIVE) 03/25/20 12:05 Urine Urobilinogen NEGATIVE mg/dL (<2.0) 03/25/20 12:05 Ur Leukocyte Esterase SMALL (NEGATIVE) H 03/25/20 12:05 Urine WBC (Auto) 5 /HPF 03/25/20 12:05 Urine RBC (Auto) 1 /HPF 03/25/20 12:05 Urine Bacteria (Auto) 2+ /HPF 03/25/20 12:05 Squamous Epi Cells Auto 4 /HPF 03/25/20 12:05 Urine Mucus (Auto) OCC /LPF 03/25/20 12:05 Urine Ascorbic Acid NEGATIVE (NEGATIVE) 03/25/20 12:05 Urine Opiates Screen NEGATIVE 03/25/20 12:05 Urine Methadone Screen NEGATIVE 03/25/20 12:05 Ur Barbiturates Screen NEGATIVE 03/25/20 12:05 Ur Phencyclidine Scrn NEGATIVE 03/25/20 12:05 Ur Amphetamines Screen NEGATIVE 03/25/20 12:05 U Benzodiazepines Scrn NEGATIVE 03/25/20 12:05 Urine Cocaine Screen NEGATIVE 03/25/20 12:05 U Marijuana (THC) Screen NEGATIVE 03/25/20 12:05 COVID-19 Source NASOPHARYNGEAL 03/25/20 12:15 COVID-19 (BESSY) NOT DETECTED 03/25/20 12:15 Blood Type A POSITIVE 03/26/20 12:43 Antibody Screen NEGATIVE 03/26/20 12:43 Plan Plan of Treatment: iron f/u incision check Time Spent: Less than 30 Minutes
[2020-03-30] MEDS: DOCUSATE SODIUM 100 MG CAPSULE PO SCH (10:42)
[2020-03-30] MEDS: PRENATAL VITAMIN W DHA CAPSULE PO SCH (10:42)
[2020-03-30] MEDS ORDERED: IRON SUCROSE COMPLEX INJ/PF 100 MG/5 ML SDV IV ONE (11:00)
[2020-03-30] MEDS: OXYCODONE-ACETAMINOPHEN 5-325 MG TABLET PO PRN (12:16)
[2020-03-30 14:20] VITALS: BP 126/76
== END 2020-03-30 15:46 | disposition home or self-care (01) | DRG 788 ==
LOC: 2S 05:00
PROVIDERS: ADMIT Obstetrics & Gynecology Gynecology; ATTEND Obstetrics & Gynecology Gynecology
PROC: 10D00Z1 Extraction of Products of Conception, Low, Open Approach (ICD-10-PCS; principal; 2020-03-28)
DX: O32.1XX2 Maternal care for breech presentation, fetus 2 (principal); O31.8X32 Other complications specific to multiple gestation, third trimester, fetus 2; O32.1XX1 Maternal care for breech presentation, fetus 1; O31.8X31 Other complications specific to multiple gestation, third trimester, fetus 1; O30.043 Twin pregnancy, dichorionic/diamniotic, third trimester; Z3A.37 37 weeks gestation of pregnancy; Z37.2 Twins, both liveborn
CPT/HCPCS: 1961; 36415; 59025; 80307; 81001; 85025; 85027; 86850; 86900; 86901; 87635; 88307; 94799; J0131; J0690; J1170; J1439; J1756; J1885; J2210; J2250; J2270; J2370; J2405; J2550; J2590; J3010; J3490; J7050; J7060